=== PATIENT | male | born 1995 | race Two or more races ===

== ENCOUNTER 2019-07-27 18:15 | Emergency (ER) | payer SELFPAY ==
[~2019-07-27] VITALS: Ht 180.3 cm; Wt 153.0 kg
[2019-07-27] MEDS ORDERED: SODIUM CHLORIDE 0.9% 1,000 ML IV ONE (20:33)
[2019-07-27] MEDS ORDERED: ONDANSETRON HCL 4MG/2ML INJ IV STA (20:33)
[2019-07-27 22:17] LABS: BASOPHILS % 0.8 % (0.0-2.0); EOSINOPHILS % 2.6 % (0.0-5.0); HEMATOCRIT. 49.2 % (42.0-52.0); HEMOGLOBIN. 16.8 g/dL (14.0-18.0); LYMPHOCYTES % 29.8 % (20.0-50.0); MEAN CORPUSCULAR HEMOGLOBIN 30.8 pg (28.0-32.0); MEAN CORPUSCULAR VOLUME 90.1 fL (80.0-94.0); MEAN PLATELET VOLUME 11.7 fl (7.4-10.4); MONOCYTES % 7.7 % (2.0-8.0); NEUTROPHILS % 59.1 % (40.0-76.0); PLATELET 237 x1000/uL (130-400); RED BLOOD CELL COUNT 5.47 mill/uL (4.7-6.1); RED CELL DISTRIBUTION WIDTH 13.2 % (11.6-14.6)
[2019-07-27 22:21] LABS: CHLORIDE 97 mEq/L (98-107)
[2019-07-27 22:22] LABS: PROTHROMBIN TIME 10.2 sec (9.6-11.0)
[2019-07-27 22:25] LABS: ETHANOL BLOOD < 10 mg/dL
[2019-07-28 00:55] LABS: CLARITY URINE CLEAR (CLEAR); COLOR URINE YELLOW (YELLOW); KETONES URINE 4+ (NEGATIVE); LEUKOCYTE ESTERASE URINE NEGATIVE (NEGATIVE); NITRITE URINE NEGATIVE (NEGATIVE); OCCULT BLOOD URINE NEGATIVE (NEGATIVE); PROTEIN URINE NEGATIVE (NEGATIVE); SPECIFIC GRAVITY URINE 1.043 (1.005-1.030); UROBILINOGEN URINE 0.2 E.U./dL (0.2-1.0)
[2019-07-28 01:10] LABS: *AMPHETAMINES SCREEN URINE NEGATIVE (NEGATIVE); *BARBITURATES SCREEN URINE NEGATIVE (NEGATIVE); *BENZODIAZEPINES SCREEN URINE NEGATIVE (NEGATIVE); *COCAINE SCREEN URINE NEGATIVE (NEGATIVE); CANNABINOID URINE SCREEN NEGATIVE (NEGATIVE); METHADONE URINE SCREEN NEGATIVE (NEGATIVE); OPIATES URINE SCREEN NEGATIVE (NEGATIVE); PHENCYCLIDINE URINE SCREEN NEGATIVE (NEGATIVE)
[2019-07-28] MEDS ORDERED: METFORMIN HCL 850MG TABLET PO ONE (02:00)
[2019-07-28 02:30] VITALS: BP 113/68
[2019-07-28] MEDS ORDERED: METFORMIN HCL 500MG TABLET PO SCH (02:30)
== END 2019-07-28 02:41 | disposition home or self-care (01) ==
LOC: ER 18:15
DX: E11.9 Type 2 diabetes mellitus without complications (principal); J02.9 Acute pharyngitis, unspecified; I10 Essential (primary) hypertension; E78.00 Pure hypercholesterolemia, unspecified
CPT/HCPCS: 36415; 80053; 80305; 80320; 81003; 82010; 82962; 83605; 83690; 85025; 85610; 96361; 96374; 99283; J2405; J7030; Z7610; G0480